=== PATIENT | male | born 1970 | race Caucasian/White ===

== ENCOUNTER 2016-09-22 17:13 | Emergency (ER) | payer OTHER ==
[2016-09-22] MEDS ORDERED: NORCO 5/325MG TABLET (BULK) As Ordered ONE (18:23)
--- NOTE | 2016-09-22 18:34 | EDDOCDS ---
Nurse's Notes Name: Ham Cuenca Age: 46 yrs Sex: Male : 1970 Arrival Date: 09/22/2016 Time: 17:13 Bed TR7 Private MD: Frandy Rangel D Diagnosis: Arrested dental caries Presentation: 09/22 17:25 Presenting complaint: states: Has a dental infection in right side. Finished 1 jo3 round of antibiotic Monday and started a new round today. Has an appointment to see the oral surgeon next week. Pt having severe pain. Adult Sepsis Screening: The patient does not have new or worsening altered mentation. Patient's respiratory rate is less than 22. Systolic blood pressure is greater than 100. Patient has a qSOFA score of 0- Negative Sepsis Screen. Suicide/Homicide risk assessment- the patient denies having any suicidal and/or homicidal ideations and does not present with any other emotional, behavioral or mental health complaints. 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 Transition of care: patient was not received from another setting of care. 17:25 Acuity: RO Level 3 jo3 17:25 Method Of Arrival: Walkin/Carried/Asstd jo3 Triage Assessment: 17:30 General: Appears uncomfortable, Behavior is cooperative. Pain: Pain currently is 10 out jo3 of 10 on a pain scale. HIV screening NA for this visit Offered previously. Neurological: Level of Consciousness is awake, alert, Oriented to person, place, time. Respiratory: Airway is patent Respiratory effort is even, unlabored. Historical: - Allergies: No known drug Allergies; - Home Meds: 1. amoxicillin 500 mg Oral cap 1 cap every 12 hours 2. Crestor 40 mg Oral tab 1 tab once daily 3. lisinopril 20 mg Oral tab 1 tab once daily 4. metformin 1,000 mg Oral tab 1 tab 2 times per day 5. hydrochlorothiazide 25 mg Oral tab 1 tab once daily - PMHx: Diabetes - NIDDM: controlled; Hypercholesterolemia; Hypertension; - PSHx: growth removed from uvula; - Social history: Smoking status: Chewing Tobacco No barriers to communication noted, The patient speaks fluent Indonesian, Speaks appropriately for age. - Family history: Not pertinent. - : The pt / caregiver states he / she is not on anticoagulants. Home medication list is obtained from the patient. - Exposure Risk Screening:: None identified. Screenin:31 Screening information is obtained from the patient. Fall risk: No risks identified. ck1 Assistance ADL's: requires no assistance with activities of daily living. Abuse/DV Screen: The patient / caregiver reports he/she is: not in a situation that causes fear, pain or injury. Nutritional screening: No deficits noted. Advance Directives: Currently, there is no health care proxy. home support is adequate. Assessment: 18:32 General: Appears in no apparent distress, comfortable, Behavior is appropriate for age, ck1 cooperative. Pain: Location: right cheek and right jaw Pain currently is 10 out of 10 on a pain scale. EENT: Oral mucosa is moist. Poor dentition noted. Respiratory: No deficits noted. Derm: Swollen area noted on right cheek and right jaw. Musculoskeletal: No deficits noted. Vital Signs: 17:14 BP 167 / 87; Pulse 89; Resp 16; Temp 98.1(O); Pulse Ox 97% ; Weight 133.81 kg; Height 5 elp ft. 10 in. (177.80 cm); Pain 10/10; 17:14 Body Mass Index 42.33 (133.81 kg, 177.80 cm) [facility] Vitals: 17:14 Log In Time: September 22, 2016 at 17:11. [facility] ED Course: 17:13 Patient visited by Krystin Smith PCA. elp 17:13 Patient moved to Waiting elp 17:14 Frandy Rangel is Private Physician. elp 17:14 Patient visited by Krystin Smith PCA. elp 17:15 Patient moved to Pre RCE elp 17:27 Triage Initiated jo3 17:30 Patient visited by Lorelei Johnson RN. jo3 17:51 Patient moved to Triage 3 kcs 18:15 Konstantin Yeung PA is PHCP. mo1 18:15 Zechariah Tovar MD is Attending Physician. mo1 18:21 Patient visited by Konstantin Yeung PA. mo1 18:23 Frandy Rangel is Referral Physician. mo1 18:24 Alejandro Farrar is Referral Physician. mo1 18:31 The patient / caregiver is instructed regarding the plan of care and ED course. ck1 18:31 No IV's were initiated during this patient's visit. No procedures done that require ck1 assistance. 18:32 Patient moved to TR7 ct3 Administered Medications: 18:32 Drug: HYDROcodone-acetaminophen 4 pack- 1 packets [hydrocodone 5 mg-acetaminophen 325 ck1 mg tablet (1 tabs)] {Co-Signature: bella (Carleen Khan RN).} Route: PO; Order Results: There are currently no results for this order. Outcome: 18:24 Discharge ordered by Provider. mo1 18:31 Discharge Assessment: Patient awake, alert and oriented x 3. No cognitive and/or ck1 functional deficits noted. Patient verbalized understanding of disposition instructions. patient administered narcotics - yes. Pt provided with safe discharge. The following High Risk Discharge criteria are identified: None. Discharged to home ambulatory, with significant other. Condition: stable. Discharge instructions given to patient, Instructed on discharge instructions, follow up and referral plans. medication usage, Demonstrated understanding of instructions, medications, Pt was receptive of discharge instructions/ teaching. Prescriptions given X 1. No special radiology studies were completed. Property :Personal belongings accompany Pt. 18:33 Patient left the ED. ck1 Signatures: Carleen Khan, RN RN Julia ChewRN RN ck1 Lorelei JohnsonRN RN Magaly Stanton, FLOORWORKER DISTRIBUTOR FLOORWORKER DISTRIBUTOR ct3 Konstantin Yeung PA PA mo1 Krystin Smith, FLOORWORKER DISTRIBUTOR FLOORWORKER DISTRIBUTOR elp Carleen blanco MTDD
--- NOTE | 2016-09-22 18:34 | EDDOCDS ---
Physician Documentation [facility] Name: Ham Cuenca Age: 46 yrs Sex: Male : 1970 Arrival Date: 09/22/2016 Time: 17:13 Bed TR7 Private MD: Frandy Rangel D Disposition: 09/22/16 18:24 Discharged to Home/Self Care. Impression: Arrested dental caries. - Condition is Stable. - Discharge Instructions: Dental Abscess, Dental Pain. - Prescriptions for [place] 5- 325 mg Oral Tablet - take 1 tablet by ORAL route every 6 hours As needed MDD: 4 tabs; 20 tablet. - Medication Reconciliation, Local Pharmacy Hours form. - Follow up: Frandy Rangel; When: Call to arrange an appointment; Reason: Recheck today's complaints, Continuance of care. Follow up: Alejandro Farrar; When: Call to arrange an appointment; Reason: Recheck today's complaints, Continuance of care. - Problem is new. - Symptoms are unchanged. Historical: - Allergies: No known drug Allergies; - Home Meds: 1. amoxicillin 500 mg Oral cap 1 cap every 12 hours 2. Crestor 40 mg Oral tab 1 tab once daily 3. lisinopril 20 mg Oral tab 1 tab once daily 4. metformin 1,000 mg Oral tab 1 tab 2 times per day 5. hydrochlorothiazide 25 mg Oral tab 1 tab once daily - PMHx: Diabetes - NIDDM: controlled; Hypercholesterolemia; Hypertension; - PSHx: growth removed from uvula; - Social history: Smoking status: Chewing Tobacco No barriers to communication noted, The patient speaks fluent Honduran, Speaks appropriately for age. - Family history: Not pertinent. - : The pt / caregiver states he / she is not on anticoagulants. Home medication list is obtained from the patient. - Exposure Risk Screening:: None identified. Vital Signs: 09/22 17:14 BP 167 / 87; Pulse 89; Resp 16; Temp 98.1(O); Pulse Ox 97% ; Weight 133.81 kg / 295 elp lbs; Height 5 ft. 10 in. (177.80 cm); Pain 10/10; 17:14 Body Mass Index 42.33 (133.81 kg, 177.80 cm) elp MDM: 18:21 HYDROcodone-acetaminophen 4 pack- 5 mg-325 mg 1 packets PO Per package directions; mo1 Dispense with patient. 1 po q4h prn for pain ordered. Administered Medications: 18:32 Drug: HYDROcodone-acetaminophen 4 pack- 1 packets [hydrocodone 5 mg-acetaminophen 325 ck1 mg tablet (1 tabs)] {Co-Signature: bella (Carleen Khan RN).} Route: PO; Signatures: Julia John RN RN ck1 Lorelei Johnson RN RN jo3 Konstantin Yeung PA PA mo1 Carleen blanco MTDD
--- NOTE | 2016-09-24 19:34 | EDDOCDS ---
Nurse's Notes [facility] Name: Ham Cuenca Age: 46 yrs Sex: Male : 1970 Arrival Date: 09/22/2016 Time: 17:13 Bed TR7 Private MD: Frandy Rangel D Diagnosis: Arrested dental caries Presentation: 09/22 17:25 Presenting complaint: states: Has a dental infection in right side. Finished 1 jo3 round of antibiotic Monday and started a new round today. Has an appointment to see the oral surgeon next week. Pt having severe pain. Adult Sepsis Screening: The patient does not have new or worsening altered mentation. Patient's respiratory rate is less than 22. Systolic blood pressure is greater than 100. Patient has a qSOFA score of 0- Negative Sepsis Screen. Suicide/Homicide risk assessment- the patient denies having any suicidal and/or homicidal ideations and does not present with any other emotional, behavioral or mental health complaints. Status: Patient is not a vp cardiovascular service line or dependent. Transition of care: patient was not received from another setting of care. 17:25 Acuity: RO Level 3 jo3 17:25 Method Of Arrival: Walkin/Carried/Asstd jo3 Triage Assessment: 17:30 General: Appears uncomfortable, Behavior is cooperative. Pain: Pain currently is 10 out jo3 of 10 on a pain scale. HIV screening NA for this visit Offered previously. Neurological: Level of Consciousness is awake, alert, Oriented to person, place, time. Respiratory: Airway is patent Respiratory effort is even, unlabored. Historical: - Allergies: No known drug Allergies; - Home Meds: 1. amoxicillin 500 mg Oral cap 1 cap every 12 hours 2. Crestor 40 mg Oral tab 1 tab once daily 3. lisinopril 20 mg Oral tab 1 tab once daily 4. metformin 1,000 mg Oral tab 1 tab 2 times per day 5. hydrochlorothiazide 25 mg Oral tab 1 tab once daily - PMHx: Diabetes - NIDDM: controlled; Hypercholesterolemia; Hypertension; - PSHx: growth removed from uvula; - Social history: Smoking status: Chewing Tobacco No barriers to communication noted, The patient speaks fluent Bengali, Speaks appropriately for age. - Family history: Not pertinent. - : The pt / caregiver states he / she is not on anticoagulants. Home medication list is obtained from the patient. - Exposure Risk Screening:: None identified. Screenin:31 Screening information is obtained from the patient. Fall risk: No risks identified. ck1 Assistance ADL's: requires no assistance with activities of daily living. Abuse/DV Screen: The patient / caregiver reports he/she is: not in a situation that causes fear, pain or injury. Nutritional screening: No deficits noted. Advance Directives: Currently, there is no health care proxy. home support is adequate. Assessment: 18:32 General: Appears in no apparent distress, comfortable, Behavior is appropriate for age, ck1 cooperative. Pain: Location: right cheek and right jaw Pain currently is 10 out of 10 on a pain scale. EENT: Oral mucosa is moist. Poor dentition noted. Respiratory: No deficits noted. Derm: Swollen area noted on right cheek and right jaw. Musculoskeletal: No deficits noted. Vital Signs: 17:14 BP 167 / 87; Pulse 89; Resp 16; Temp 98.1(O); Pulse Ox 97% ; Weight 133.81 kg; Height 5 elp ft. 10 in. (177.80 cm); Pain 10/10; 17:14 Body Mass Index 42.33 (133.81 kg, 177.80 cm) [facility] Vitals: 17:14 Log In Time: September 22, 2016 at 17:11. [facility] ED Course: 17:13 Patient visited by Krystin Smith PCA. elp 17:13 Patient moved to Waiting elp 17:14 Frandy Rangel is Private Physician. elp 17:14 Patient visited by Krystin Smith PCA. elp 17:15 Patient moved to Pre RCE elp 17:27 Triage Initiated jo3 17:30 Patient visited by Lorelei Johnson RN. jo3 17:51 Patient moved to Triage 3 kcs 18:15 Konstantin Yeung PA is PHCP. mo1 18:15 Zechariah Tovar MD is Attending Physician. mo1 18:21 Patient visited by Konstantin Yeung PA. mo1 18:23 Frandy Rangel is Referral Physician. mo1 18:24 Alejandro Farrar is Referral Physician. mo1 18:31 The patient / caregiver is instructed regarding the plan of care and ED course. ck1 18:31 No IV's were initiated during this patient's visit. No procedures done that require ck1 assistance. 18:32 Patient moved to TR7 ct3 19:13 [facility] Payment Agreement was scanned into [employer] and attached to record. karime 09/23 11:58 T-Sheet-- Draft Copy was scanned into [employer] and attached to record. gb Administered Medications: 09/22 18:32 Drug: HYDROcodone-acetaminophen 4 pack- 1 packets [hydrocodone 5 mg-acetaminophen 325 ck1 mg tablet (1 tabs)] {Co-Signature: bella (Carleen Khan RN).} Route: PO; Order Results: There are currently no results for this order. Outcome: 18:24 Discharge ordered by Provider. mo1 18:31 Discharge Assessment: Patient awake, alert and oriented x 3. No cognitive and/or ck1 functional deficits noted. Patient verbalized understanding of disposition instructions. patient administered narcotics - yes. Pt provided with safe discharge. The following High Risk Discharge criteria are identified: None. Discharged to home ambulatory, with significant other. Condition: stable. Discharge instructions given to patient, Instructed on discharge instructions, follow up and referral plans. medication usage, Demonstrated understanding of instructions, medications, Pt was receptive of discharge instructions/ teaching. Prescriptions given X 1. No special radiology studies were completed. Property :Personal belongings accompany Pt. 18:33 Patient left the ED. ck1 Signatures: Carleen Khan, RN Cecilia Meeks, Reg Reg gb Julia JohnRN DORIAN ck1 Lorelei JohnsonRN RN Magaly Stanton, INSTALLATIONS INSPECTOR INSTALLATIONS INSPECTOR ct3 Konstantin Yeung PA PA mo1 Krystin Smith, INSTALLATIONS INSPECTOR INSTALLATIONS INSPECTOR mananp Andra Bradley [facility] Carleen blanco Chart Complete MTDD
--- NOTE | 2016-09-24 19:34 | EDDOCDS ---
Physician Documentation [facility] Name: Ham Cuenca Age: 46 yrs Sex: Male : 1970 Arrival Date: 09/22/2016 Time: 17:13 Bed TR7 Private MD: Frandy Rangel D Disposition: 09/22/16 18:24 Discharged to Home/Self Care. Impression: Arrested dental caries. - Condition is Stable. - Discharge Instructions: Dental Abscess, Dental Pain. - Prescriptions for [place] 5- 325 mg Oral Tablet - take 1 tablet by ORAL route every 6 hours As needed MDD: 4 tabs; 20 tablet. - Medication Reconciliation, Local Pharmacy Hours form. - Follow up: Frandy Rangel; When: Call to arrange an appointment; Reason: Recheck today's complaints, Continuance of care. Follow up: Alejandro Farrar; When: Call to arrange an appointment; Reason: Recheck today's complaints, Continuance of care. - Problem is new. - Symptoms are unchanged. Historical: - Allergies: No known drug Allergies; - Home Meds: 1. amoxicillin 500 mg Oral cap 1 cap every 12 hours 2. Crestor 40 mg Oral tab 1 tab once daily 3. lisinopril 20 mg Oral tab 1 tab once daily 4. metformin 1,000 mg Oral tab 1 tab 2 times per day 5. hydrochlorothiazide 25 mg Oral tab 1 tab once daily - PMHx: Diabetes - NIDDM: controlled; Hypercholesterolemia; Hypertension; - PSHx: growth removed from uvula; - Social history: Smoking status: Chewing Tobacco No barriers to communication noted, The patient speaks fluent Zambian, Speaks appropriately for age. - Family history: Not pertinent. - : The pt / caregiver states he / she is not on anticoagulants. Home medication list is obtained from the patient. - Exposure Risk Screening:: None identified. Vital Signs: 09/22 17:14 BP 167 / 87; Pulse 89; Resp 16; Temp 98.1(O); Pulse Ox 97% ; Weight 133.81 kg / 295 elp lbs; Height 5 ft. 10 in. (177.80 cm); Pain 10/10; 17:14 Body Mass Index 42.33 (133.81 kg, 177.80 cm) elp MDM: 18:21 HYDROcodone-acetaminophen 4 pack- 5 mg-325 mg 1 packets PO Per package directions; mo1 Dispense with patient. 1 po q4h prn for pain ordered. 19:13 [facility] Payment Agreement was scanned into [employer] and attached to record. [facility] 19:13 Financial registration complete. [facility] 09/23 11:58 T-Sheet-- Draft Copy was scanned into [employer] and attached to record. gb Administered Medications: 09/22 18:32 Drug: HYDROcodone-acetaminophen 4 pack- 1 packets [hydrocodone 5 mg-acetaminophen 325 ck1 mg tablet (1 tabs)] {Co-Signature: bella (Carleen Khan RN).} Route: PO; Signatures: Cecilia Davenport, Reg Reg gb Julia John RN RN ck1 Lorelei Johnson RN RN jo3 Konstantin Yeung PA PA mo1 Andra Bradley [facility] Carleen blanco The chart was reviewed and I authenticate all verbal orders and agree with the evaluation and treatment provided.Attachments: 19:13 [facility] Payment Agreement [facility] 09/23 11:58 T-Sheet-- Draft Copy Chart Complete MTDD
--- NOTE | 2016-09-24 19:34 | EDDOCDS ---
Physician Documentation [facility] Name: Ham Cuenca Age: 46 yrs Sex: Male : 1970 Arrival Date: 09/22/2016 Time: 17:13 Bed TR7 Private MD: Frandy Rangel D Disposition: 09/22/16 18:24 Discharged to Home/Self Care. Impression: Arrested dental caries. - Condition is Stable. - Discharge Instructions: Dental Abscess, Dental Pain. - Prescriptions for [place] 5- 325 mg Oral Tablet - take 1 tablet by ORAL route every 6 hours As needed MDD: 4 tabs; 20 tablet. - Medication Reconciliation, Local Pharmacy Hours form. - Follow up: Frandy Rangel; When: Call to arrange an appointment; Reason: Recheck today's complaints, Continuance of care. Follow up: Alejandro Farrar; When: Call to arrange an appointment; Reason: Recheck today's complaints, Continuance of care. - Problem is new. - Symptoms are unchanged. Historical: - Allergies: No known drug Allergies; - Home Meds: 1. amoxicillin 500 mg Oral cap 1 cap every 12 hours 2. Crestor 40 mg Oral tab 1 tab once daily 3. lisinopril 20 mg Oral tab 1 tab once daily 4. metformin 1,000 mg Oral tab 1 tab 2 times per day 5. hydrochlorothiazide 25 mg Oral tab 1 tab once daily - PMHx: Diabetes - NIDDM: controlled; Hypercholesterolemia; Hypertension; - PSHx: growth removed from uvula; - Social history: Smoking status: Chewing Tobacco No barriers to communication noted, The patient speaks fluent Salvadorean, Speaks appropriately for age. - Family history: Not pertinent. - : The pt / caregiver states he / she is not on anticoagulants. Home medication list is obtained from the patient. - Exposure Risk Screening:: None identified. Vital Signs: 09/22 17:14 BP 167 / 87; Pulse 89; Resp 16; Temp 98.1(O); Pulse Ox 97% ; Weight 133.81 kg / 295 elp lbs; Height 5 ft. 10 in. (177.80 cm); Pain 10/10; 17:14 Body Mass Index 42.33 (133.81 kg, 177.80 cm) elp MDM: 18:21 HYDROcodone-acetaminophen 4 pack- 5 mg-325 mg 1 packets PO Per package directions; mo1 Dispense with patient. 1 po q4h prn for pain ordered. 19:13 [facility] Payment Agreement was scanned into [employer] and attached to record. [facility] 19:13 Financial registration complete. [facility] 09/23 11:58 T-Sheet-- Draft Copy was scanned into [employer] and attached to record. gb Administered Medications: 09/22 18:32 Drug: HYDROcodone-acetaminophen 4 pack- 1 packets [hydrocodone 5 mg-acetaminophen 325 ck1 mg tablet (1 tabs)] {Co-Signature: bella (Carleen Khan RN).} Route: PO; Signatures: Cecilia Davenport, Reg Reg gb Julia John RN RN ck1 Lorelei Johnson RN RN jo3 Konstantin Yeung PA PA mo1 Andra Bradley [facility] Carleen blanco The chart was reviewed and I authenticate all verbal orders and agree with the evaluation and treatment provided.Attachments: 19:13 [facility] Payment Agreement [facility] 09/23 11:58 T-Sheet-- Draft Copy Chart Complete MTDD
== END 2016-09-22 18:33 | disposition home or self-care (01) ==
LOC: M ED 17:13
DX: K02.9 Dental caries, unspecified (principal); K13.79 Other lesions of oral mucosa; I10 Essential (primary) hypertension; E11.9 Type 2 diabetes mellitus without complications; E78.00 Pure hypercholesterolemia, unspecified; Z79.899 Other long term (current) drug therapy; Z79.84 Long term (current) use of oral hypoglycemic drugs; F17.220 Nicotine dependence, chewing tobacco, uncomplicated

== ENCOUNTER → 2016-12-22 | Outpatient (REF) | payer OTHER ==
[2016-12-22 18:15] LABS: ALBUMIN 4.3 GM/DL (3.2-5.2); ALBUMIN/GLOBULIN RATIO 1.26 (1.00-1.93); ALKALINE PHOSPHATASE 66 U/L (45-117); ALT/SGPT 74 U/L (12-78); ANION GAP 9 MEQ/L (8-16); AST/SGOT 51 U/L (15-37); BILIRUBIN,TOTAL 0.4 MG/DL (0.2-1.0); BLOOD UREA NITROGEN 24 MG/DL (7-18); CALCIUM LEVEL 9.5 MG/DL (8.5-10.1); CARBON DIOXIDE LEVEL 28 MEQ/L (21-32); CHLORIDE LEVEL 102 MEQ/L (98-107); CHOLESTEROL LEVEL 203 MG/DL (<200); CREATININE FOR GFR 1.21 MG/DL (0.70-1.30); GLOMERULAR FILTRATION RATE > 60.0 (>60); GLUCOSE, FASTING 102 MG/DL (70-105); POTASSIUM SERUM 4.4 MEQ/L (3.5-5.1); SODIUM LEVEL 139 MEQ/L (136-145); TOTAL PROTEIN 7.7 GM/DL (6.4-8.2); TRIGLYCERIDES LEVEL 200 MG/DL (<150)
== END ==
LOC: M SFHCCLAY 11:14
PROVIDERS: ATTEND Family Medicine
DX: E11.9 Type 2 diabetes mellitus without complications (principal); E78.5 Hyperlipidemia, unspecified

== ENCOUNTER → 2017-12-21 | Outpatient (REF) | payer OTHER ==
[2017-12-21 18:33] LABS: ALBUMIN 4.4 GM/DL (3.2-5.2); ALBUMIN/GLOBULIN RATIO 1.26 (1.00-1.93); ALKALINE PHOSPHATASE 68 U/L (45-117); ALT/SGPT 75 U/L (12-78); ANION GAP 9 MEQ/L (8-16); AST/SGOT 48 U/L (7-37); BILIRUBIN,TOTAL 0.5 MG/DL (0.2-1.0); BLOOD UREA NITROGEN 17 MG/DL (7-18); CALCIUM LEVEL 9.4 MG/DL (8.5-10.1); CARBON DIOXIDE LEVEL 25 MEQ/L (21-32); CHLORIDE LEVEL 105 MEQ/L (98-107); CHOLESTEROL LEVEL 194 MG/DL (<200); CHOLESTEROL RISK RATIO 4.127 (<5); CREATININE FOR GFR 1.21 MG/DL (0.70-1.30); GLOMERULAR FILTRATION RATE > 60.0 (>60); GLUCOSE, FASTING 110 MG/DL (70-100); HDL CHOLESTEROL 47 MG/DL (>40); LDL CHOLESTEROL 104.4 MG/DL (<100); NON-HDL-C 147 MG/DL; POTASSIUM SERUM 4.3 MEQ/L (3.5-5.1); SODIUM LEVEL 139 MEQ/L (136-145); TOTAL PROTEIN 7.9 GM/DL (6.4-8.2); TRIGLYCERIDES LEVEL 213 MG/DL (<150)
[2017-12-21 18:36] LABS: ESTIMATED AVERAGE GLUCOSE 140 MG/DL (60-110); HEMOGLOBIN A1c 6.5 %
== END ==
LOC: M SFHCCLAY 11:00
DX: E11.9 Type 2 diabetes mellitus without complications (principal); E78.5 Hyperlipidemia, unspecified

== ENCOUNTER → 2018-06-04 | Outpatient (REF) | payer OTHER ==
[2018-06-05 11:46] LABS: ANION GAP 10 MEQ/L (8-16); BLOOD UREA NITROGEN 13 MG/DL (7-18); CALCIUM LEVEL 8.8 MG/DL (8.5-10.1); CARBON DIOXIDE LEVEL 25 MEQ/L (21-32); CHLORIDE LEVEL 105 MEQ/L (98-107); GLOMERULAR FILTRATION RATE > 60.0 (>60); GLUCOSE, FASTING 108 MG/DL (70-100); POTASSIUM SERUM 4.4 MEQ/L (3.5-5.1); SODIUM LEVEL 140 MEQ/L (136-145); URIC ACID 7.9 MG/DL (3.5-7.2)
== END ==
LOC: M SFHCCLAY 14:34
DX: N17.9 Acute kidney failure, unspecified (principal); M1A.09X0 Idiopathic chronic gout, multiple sites, without tophus (tophi)

== ENCOUNTER → 2018-06-28 | Outpatient (REF) | payer OTHER ==
[2018-06-28 17:26] LABS: ANION GAP 8 MEQ/L (8-16); BLOOD UREA NITROGEN 16 MG/DL (7-18); CALCIUM LEVEL 10.4 MG/DL (8.5-10.1); CARBON DIOXIDE LEVEL 27 MEQ/L (21-32); CHLORIDE LEVEL 102 MEQ/L (98-107); CREATININE FOR GFR 1.12 MG/DL (0.70-1.30); GLOMERULAR FILTRATION RATE > 60.0 (>60); GLUCOSE, FASTING 115 MG/DL (70-100); POTASSIUM SERUM 4.4 MEQ/L (3.5-5.1); SODIUM LEVEL 137 MEQ/L (136-145); THYROID STIMULATING HORMONE 0.799 uIU/ML (0.358-3.740)
[2018-06-28 19:07] LABS: ESTIMATED AVERAGE GLUCOSE 146 MG/DL (60-110); HEMOGLOBIN A1c 6.7 %
== END ==
LOC: M SFHCCLAY 11:03
DX: E11.9 Type 2 diabetes mellitus without complications (principal); R23.2 Flushing

== ENCOUNTER → 2018-12-28 | Outpatient (REF) | payer OTHER ==
[2018-12-28 18:24] LABS: ALBUMIN 4.3 GM/DL (3.2-5.2); ALT/SGPT 123 U/L (12-78); BILIRUBIN,TOTAL 0.7 MG/DL (0.2-1.0); BLOOD UREA NITROGEN 17 MG/DL (7-18); CALCIUM LEVEL 9.8 MG/DL (8.5-10.1); CARBON DIOXIDE LEVEL 26 MEQ/L (21-32); CHLORIDE LEVEL 103 MEQ/L (98-107); CHOLESTEROL LEVEL 189 MG/DL (<200); CREATININE FOR GFR 1.17 MG/DL (0.70-1.30); GLOMERULAR FILTRATION RATE > 60.0 (>60); GLUCOSE, FASTING 112 MG/DL (70-100); HDL CHOLESTEROL 45 MG/DL (>40); LDL CHOLESTEROL 97 MG/DL (<100); NON-HDL-C 144 MG/DL; SODIUM LEVEL 136 MEQ/L (136-145); TOTAL PROTEIN 7.9 GM/DL (6.4-8.2); TRIGLYCERIDES LEVEL 234 MG/DL (<150)
[2018-12-28 18:49] LABS: MALB URINE SIEMENS 35.8 MG/L; MAU/CREAT RATIO 15.4 MCG/MG (0.0-30.0)
[2018-12-28 19:01] LABS: HEMOGLOBIN A1c 7.2 %
== END ==
LOC: M SFHCCLAY 11:16
PROVIDERS: ATTEND Family Medicine
DX: E11.9 Type 2 diabetes mellitus without complications (principal)

== ENCOUNTER → 2019-07-05 | Outpatient (REF) | payer BC ==
[2019-07-05 16:39] LABS: ALBUMIN 4.1 GM/DL (3.2-5.2); ALT/SGPT 148 U/L (12-78); BILIRUBIN,TOTAL 0.4 MG/DL (0.2-1.0); BLOOD UREA NITROGEN 12 MG/DL (7-18); CALCIUM LEVEL 9.5 MG/DL (8.5-10.1); CARBON DIOXIDE LEVEL 25 MEQ/L (21-32); CHLORIDE LEVEL 107 MEQ/L (98-107); CREATININE FOR GFR 0.99 MG/DL (0.70-1.30); GLOMERULAR FILTRATION RATE > 60.0 (>60); GLUCOSE, FASTING 132 MG/DL (70-100); POTASSIUM SERUM 4.1 MEQ/L (3.5-5.1); SODIUM LEVEL 140 MEQ/L (136-145); TOTAL PROTEIN 7.3 GM/DL (6.4-8.2)
[2019-07-05 17:02] LABS: HEMOGLOBIN A1c 7.9 %
== END ==
LOC: M SFHCCLAY 11:29
PROVIDERS: ATTEND Family Medicine
DX: E11.9 Type 2 diabetes mellitus without complications (principal)

== ENCOUNTER → 2020-01-01 | Outpatient (REF) | payer BC ==
[2020-01-01 17:15] LABS: HEMOGLOBIN A1c 8.5 %
[2020-01-01 17:19] LABS: MALB URINE SIEMENS 72.5 MG/L; MAU/CREAT RATIO 28.2 MCG/MG (0.0-30.0)
[2020-01-01 17:42] LABS: ALBUMIN 4.1 GM/DL (3.2-5.2); ALT/SGPT 125 U/L (12-78); BILIRUBIN,TOTAL 0.4 MG/DL (0.2-1.0); BLOOD UREA NITROGEN 17 MG/DL (7-18); CALCIUM LEVEL 9.2 MG/DL (8.5-10.1); CARBON DIOXIDE LEVEL 27 MEQ/L (21-32); CHLORIDE LEVEL 103 MEQ/L (98-107); CHOLESTEROL LEVEL 187 MG/DL (<200); CHOLESTEROL RISK RATIO 4.921 (<5); CREATININE FOR GFR 1.11 MG/DL (0.70-1.30); GLOMERULAR FILTRATION RATE > 60.0 (>60); GLUCOSE, FASTING 182 MG/DL (70-100); HDL CHOLESTEROL 38 MG/DL (>40); LDL CHOLESTEROL 77 MG/DL (<100); NON-HDL-C 149 MG/DL; POTASSIUM SERUM 4.4 MEQ/L (3.5-5.1); SODIUM LEVEL 138 MEQ/L (136-145); TOTAL PROTEIN 7.5 GM/DL (6.4-8.2); TRIGLYCERIDES LEVEL 361 MG/DL (<150)
== END ==
LOC: M SFHCCLAY 10:53
PROVIDERS: ATTEND Family Medicine
DX: E78.5 Hyperlipidemia, unspecified (principal); I10 Essential (primary) hypertension; E11.9 Type 2 diabetes mellitus without complications

== ENCOUNTER → 2020-11-23 | Outpatient (CLI) | payer SELFPAY | LOC: M LABSMTC 11:51 | PROVIDERS: ATTEND Pediatrics | DX: Z20.822 Contact with and (suspected) exposure to COVID-19 (principal) ==

== ENCOUNTER → 2020-12-01 | Outpatient (REF) | payer BC ==
[2020-12-01 16:39] LABS: ALBUMIN 3.8 GM/DL (3.2-5.2); BILIRUBIN,TOTAL 0.4 MG/DL (0.2-1.0); CALCIUM LEVEL 9.6 MG/DL (8.5-10.1); CREATININE FOR GFR 1.62 MG/DL (0.70-1.30); GLOMERULAR FILTRATION RATE 48.3 (>56); POTASSIUM SERUM 4.5 MEQ/L (3.5-5.1); TOTAL PROTEIN 7.5 GM/DL (6.4-8.2)
[2020-12-01 17:18] LABS: HEMOGLOBIN A1c 11.1 %
== END ==
LOC: M SFHCCLAY 10:22
PROVIDERS: ATTEND Family Medicine
DX: E11.9 Type 2 diabetes mellitus without complications (principal)

== ENCOUNTER → 2021-02-09 | Outpatient (REF) | payer BC ==
[2021-02-09 16:58] LABS: HEMOGLOBIN A1c 7.1 %
[2021-02-09 17:03] LABS: BLOOD UREA NITROGEN 44 MG/DL (7-18); CALCIUM LEVEL 9.6 MG/DL (8.5-10.1); CARBON DIOXIDE LEVEL 22 MEQ/L (21-32); CHLORIDE LEVEL 105 MEQ/L (98-107); CREATININE FOR GFR 1.26 MG/DL (0.70-1.30); GLOMERULAR FILTRATION RATE > 60.0 (>56); GLUCOSE, FASTING 136 MG/DL (70-100); POTASSIUM SERUM 4.9 MEQ/L (3.5-5.1); SODIUM LEVEL 136 MEQ/L (136-145)
== END ==
LOC: M SFHCCLAY 10:58
PROVIDERS: ATTEND Family Medicine
DX: E11.9 Type 2 diabetes mellitus without complications (principal)

== ENCOUNTER → 2021-06-24 | Outpatient (REF) | payer BC ==
[2021-06-24 15:56] LABS: BASO % 0.5 % (0.0-1.0); EOS # 0.2 10^3/uL (0.0-0.5); EOS % 2.6 % (0.0-3.0); HEMATOCRIT 42.5 % (42.0-52.0); HEMOGLOBIN 13.8 g/dl (13.5-17.5); LYMPH # 2.1 10^3/uL (1.5-5.0); LYMPH % 28.3 % (24.0-44.0); MEAN CORPUSCULAR HEMOGLOBIN 28.9 pg (27.0-33.0); MEAN CORPUSCULAR HGB CONC 32.5 g/dl (32.0-36.5); MEAN CORPUSCULAR VOLUME 88.9 fl (80.0-96.0); MONO # 0.6 10^3/uL (0.0-0.8); MONO % 7.3 % (2.0-8.0); NEUTROPHILS # 4.6 10^3/uL (1.5-8.5); NEUTROPHILS % 60.8 % (36.0-66.0); PLATELET COUNT, AUTOMATED 176 10^3/uL (150-450); RED BLOOD COUNT 4.78 10^6/uL (4.30-6.10); WHITE BLOOD COUNT 7.6 10^3/uL (4.0-10.0)
[2021-06-24 16:27] LABS: HEMOGLOBIN A1c 7.4 %
[2021-06-24 16:36] LABS: ALBUMIN 4.4 GM/DL (3.2-5.2); ALT/SGPT 56 U/L (12-78); BILIRUBIN,TOTAL 0.4 MG/DL (0.2-1.0); BLOOD UREA NITROGEN 24 MG/DL (7-18); CARBON DIOXIDE LEVEL 23 MEQ/L (21-32); CHLORIDE LEVEL 100 MEQ/L (98-107); CHOLESTEROL LEVEL 232 MG/DL (<200); CHOLESTEROL RISK RATIO 6.628 (<5); CREATININE FOR GFR 1.33 MG/DL (0.70-1.30); GLOMERULAR FILTRATION RATE > 60.0 (>56); GLUCOSE, FASTING 159 MG/DL (70-100); HDL CHOLESTEROL 35 MG/DL (>40); MAGNESIUM LEVEL 1.9 MG/DL (1.8-2.4); NON-HDL-C 197 MG/DL; POTASSIUM SERUM 4.7 MEQ/L (3.5-5.1); SODIUM LEVEL 135 MEQ/L (136-145); TRIGLYCERIDES LEVEL 666 MG/DL (<150); URIC ACID 7.7 MG/DL (3.5-7.2)
[2021-06-24 16:38] LABS: CREATININE, URINE 64.9 MG/DL; MALB URINE SIEMENS 31.9 MG/L; MAU/CREAT RATIO 49.1 MCG/MG (0.0-30.0)
== END ==
LOC: M SFHCCLAY 11:32
PROVIDERS: ATTEND Family Medicine
DX: E11.9 Type 2 diabetes mellitus without complications (principal); I10 Essential (primary) hypertension; K21.9 Gastro-esophageal reflux disease without esophagitis; M1A.09X0 Idiopathic chronic gout, multiple sites, without tophus (tophi)

== ENCOUNTER → 2021-12-14 | Outpatient (REF) | payer BC ==
[2021-12-14 16:34] LABS: ALBUMIN 4.2 GM/DL (3.2-5.2); ALT/SGPT 53 U/L (12-78); BILIRUBIN,TOTAL 0.4 MG/DL (0.2-1.0); BLOOD UREA NITROGEN 25 MG/DL (7-18); CALCIUM LEVEL 10.2 MG/DL (8.5-10.1); CARBON DIOXIDE LEVEL 25 MEQ/L (21-32); CHLORIDE LEVEL 105 MEQ/L (98-107); CREATININE FOR GFR 1.13 MG/DL (0.70-1.30); GLOMERULAR FILTRATION RATE > 60.0 (>56); GLUCOSE, FASTING 159 MG/DL (70-100); POTASSIUM SERUM 4.5 MEQ/L (3.5-5.1); SODIUM LEVEL 137 MEQ/L (136-145); TOTAL PROTEIN 7.3 GM/DL (6.4-8.2)
[2021-12-14 17:30] LABS: HEMOGLOBIN A1c 7.8 %
== END ==
LOC: M SFHCCLAY 11:42
PROVIDERS: ATTEND Family Medicine
DX: E11.9 Type 2 diabetes mellitus without complications (principal)

== ENCOUNTER → 2021-12-21 | Outpatient (CLI) | payer BC | LOC: M CLY 10:18 | PROVIDERS: ATTEND Family Medicine | DX: M25.512 Pain in left shoulder (principal); M25.511 Pain in right shoulder; M19.011 Primary osteoarthritis, right shoulder; M19.012 Primary osteoarthritis, left shoulder ==

== ENCOUNTER → 2022-06-28 | Outpatient (REF) | payer BC ==
[2022-06-28 17:54] LABS: BASO % 0.4 % (0.0-1.0); EOS # 0.2 10^3/uL (0.0-0.5); EOS % 2.9 % (0.0-3.0); HEMATOCRIT 42.9 % (42.0-52.0); HEMOGLOBIN 13.9 g/dl (13.5-17.5); LYMPH % 26.9 % (24.0-44.0); MEAN CORPUSCULAR HEMOGLOBIN 29.1 pg (27.0-33.0); MEAN CORPUSCULAR HGB CONC 32.4 g/dl (32.0-36.5); MEAN CORPUSCULAR VOLUME 89.7 fl (80.0-96.0); MONO # 0.5 10^3/uL (0.0-0.8); MONO % 7.3 % (2.0-8.0); NEUTROPHILS # 4.5 10^3/uL (1.5-8.5); NEUTROPHILS % 61.8 % (36.0-66.0); PLATELET COUNT, AUTOMATED 158 10^3/uL (150-450); RED BLOOD COUNT 4.78 10^6/uL (4.30-6.10); WHITE BLOOD COUNT 7.3 10^3/uL (4.0-10.0)
[2022-06-28 18:04] LABS: ALT/SGPT 98 U/L (12-78); BILIRUBIN,TOTAL 0.4 MG/DL (0.2-1.0); BLOOD UREA NITROGEN 15 MG/DL (7-18); CALCIUM LEVEL 9.7 MG/DL (8.5-10.1); CARBON DIOXIDE LEVEL 25 MEQ/L (21-32); CHLORIDE LEVEL 104 MEQ/L (98-107); CHOLESTEROL LEVEL 242 MG/DL (<200); CREATININE FOR GFR 1.24 MG/DL (0.70-1.30); GLOMERULAR FILTRATION RATE > 60.0 (>56); GLUCOSE, FASTING 204 MG/DL (70-100); HDL CHOLESTEROL 40 MG/DL (>40); NON-HDL-C 202 MG/DL; POTASSIUM SERUM 4.3 MEQ/L (3.5-5.1); SODIUM LEVEL 135 MEQ/L (136-145); TOTAL PROTEIN 7.3 GM/DL (6.4-8.2); TRIGLYCERIDES LEVEL 684 MG/DL (<150); URIC ACID 7.5 MG/DL (3.5-7.2)
[2022-06-28 18:38] LABS: MALB URINE SIEMENS 14.8 MG/L; MAU/CREAT RATIO 23.1 MCG/MG (0.0-30.0)
[2022-06-28 21:30] LABS: HEMOGLOBIN A1c 9.6 %
== END ==
LOC: M SFHCCLAY 10:29
PROVIDERS: ATTEND Family Medicine
DX: E11.9 Type 2 diabetes mellitus without complications (principal); K21.9 Gastro-esophageal reflux disease without esophagitis; E78.5 Hyperlipidemia, unspecified; M1A.09X0 Idiopathic chronic gout, multiple sites, without tophus (tophi); I10 Essential (primary) hypertension

== ENCOUNTER → 2022-08-23 | Outpatient (CLI) | payer BC | LOC: M PLAIMG 16:36 | PROVIDERS: ATTEND Family Medicine | DX: M25.512 Pain in left shoulder (principal); M25.511 Pain in right shoulder; M94.211 Chondromalacia, right shoulder; S43.431A Superior glenoid labrum lesion of right shoulder, initial encounter; M75.111 Incomplete rotator cuff tear or rupture of right shoulder, not specified as traumatic; X58.XXXA Exposure to other specified factors, initial encounter; Y92.9 Unspecified place or not applicable; Y99.9 Unspecified external cause status; Y93.9 Activity, unspecified; M75.112 Incomplete rotator cuff tear or rupture of left shoulder, not specified as traumatic; S43.432A Superior glenoid labrum lesion of left shoulder, initial encounter; M94.212 Chondromalacia, left shoulder ==

== ENCOUNTER → 2022-09-01 | Outpatient (CLI) | payer BC | LOC: M SOG 10:53 | PROVIDERS: ATTEND Orthopaedic Surgery | DX: M19.011 Primary osteoarthritis, right shoulder (principal); M19.012 Primary osteoarthritis, left shoulder; M25.512 Pain in left shoulder; M25.511 Pain in right shoulder ==

== ENCOUNTER → 2022-12-27 | Outpatient (REF) | payer BC ==
[2022-12-27 18:04] LABS: HEMOGLOBIN A1c 8.3 % (4.0-6.0)
[2022-12-27 18:34] LABS: ALBUMIN 4.4 G/DL (3.2-5.2); ALKALINE PHOSPHATASE 60 U/L (46-116); ALT/SGPT 34 U/L (7.0-40); AST/SGOT 21 U/L (<34); BILIRUBIN,TOTAL 0.2 MG/DL (0.3-1.2); BLOOD UREA NITROGEN 34 MG/DL (9-23); CALCIUM LEVEL 9.9 MG/DL (8.5-10.1); CARBON DIOXIDE LEVEL 25 MMOL/L (20-31); CHLORIDE LEVEL 105 MMOL/L (98-107); CREATININE FOR GFR 1.32 MG/DL (0.70-1.30); GLOMERULAR FILTRATION RATE > 60.0 (>56); GLUCOSE, FASTING 142 MG/DL (60-100); POTASSIUM SERUM 4.8 MMOL/L (3.5-5.1); SODIUM LEVEL 136 MMOL/L (136-145); TOTAL PROTEIN 7.3 G/DL (5.7-8.2)
== END ==
LOC: M SFHCCLAY 14:30
PROVIDERS: ATTEND Family Medicine
DX: E11.9 Type 2 diabetes mellitus without complications (principal)

== ENCOUNTER → 2023-08-25 | Outpatient (REF) | payer BC ==
[2023-08-25 19:40] LABS: ALBUMIN 4.3 G/DL (3.2-5.2); BILIRUBIN,TOTAL 0.3 MG/DL (0.3-1.2); CALCIUM LEVEL 9.9 MG/DL (8.5-10.1); CHOLESTEROL RISK RATIO 3.09 (<5); CREATININE FOR GFR 2.07 MG/DL (0.70-1.30); GLOMERULAR FILTRATION RATE 36.1 (>56); HDL CHOLESTEROL 40.7 MG/DL (>40); LDL CHOLESTEROL 34.9 MG/DL (<100); NON-HDL-C 85.3 MG/DL; POTASSIUM SERUM 4.7 MMOL/L (3.5-5.1); TOTAL PROTEIN 7.2 G/DL (5.7-8.2)
[2023-08-25 19:41] LABS: URIC ACID 6.1 MG/DL (3.7-9.2)
[2023-08-25 19:51] LABS: HEMOGLOBIN A1c 7.1 % (4.0-6.0)
== END ==
LOC: M SFHCCLAY 13:25
PROVIDERS: ATTEND Family Medicine
DX: E11.9 Type 2 diabetes mellitus without complications (principal); E78.5 Hyperlipidemia, unspecified; M1A.09X0 Idiopathic chronic gout, multiple sites, without tophus (tophi)

== ENCOUNTER → 2024-09-16 | Outpatient (REF) | payer BC ==
[2024-09-16 12:24] LABS: HEMOGLOBIN A1c 11.2 % (4.0-6.0)
[2024-09-16 12:30] LABS: ALBUMIN 3.7 G/DL (3.2-5.2); ALKALINE PHOSPHATASE 66 U/L (40-129); ALT/SGPT 44 U/L (7.0-40); AST/SGOT 20 U/L (<34); BILIRUBIN,TOTAL 0.3 MG/DL (0.3-1.2); BLOOD UREA NITROGEN 25 MG/DL (9-23); CALCIUM LEVEL 9.3 MG/DL (8.5-10.1); CARBON DIOXIDE LEVEL 24 MMOL/L (20-31); CHLORIDE LEVEL 104 MMOL/L (98-107); CHOLESTEROL LEVEL 205 MG/DL (<200); CHOLESTEROL RISK RATIO 5.13 (<5); GLOMERULAR FILTRATION RATE > 60.0 (>56); GLUCOSE, FASTING 215 MG/DL (60-100); HDL CHOLESTEROL 39.9 MG/DL (>40); NON-HDL-C 165.1 MG/DL; POTASSIUM SERUM 4.2 MMOL/L (3.5-5.1); SODIUM LEVEL 139 MMOL/L (136-145); TOTAL PROTEIN 6.9 G/DL (5.7-8.2); TRIGLYCERIDES LEVEL 549 MG/DL (<150)
[2024-09-16 12:32] LABS: URIC ACID 6.1 MG/DL (3.7-9.2)
== END ==
LOC: M SFHCCLAY 08:00
PROVIDERS: ATTEND Family Medicine
DX: E11.9 Type 2 diabetes mellitus without complications (principal); I10 Essential (primary) hypertension; M1A.09X0 Idiopathic chronic gout, multiple sites, without tophus (tophi)